=== PATIENT | male | born 1965 | race Two or more races ===

== ENCOUNTER 2025-03-17 22:17 | Emergency (ER) | payer MEDICAID, OTHER ==
[~2025-03-17] VITALS: Ht 165.1 cm; Wt 72.7 kg
[2025-03-17] MEDS: LORazepam 2MG/ML-1ML VIAL IV ONE (23:00)
[2025-03-17 23:03] VITALS: PULSE 88; RESP 20; O2SAT 97
[2025-03-17] MEDS: SODIUM CHLORIDE 0.9% 1,000 ML IV ONE (23:06)
--- NOTE | 2025-03-17 23:11 | ED.PDOC ---
Ankit. trauma (HPI) HPI Comments 59-year-old male who is brought in by ambulance for evaluation status post fall. Per EMS personnel report, patient fell from the back of a truck after getting intoxicated with alcohol at a [place], earlier, this evening. Fall was witnessed. Patient hit the right side of his head and lost consciousness for 2 minutes. Initial onset blood glucose of 416. Patient was combative EN route and had to be placed in four point restraints. mihaela garza: fall, etoh head injury, intox. hyperglycemia HPI: Poor Historian. 59-year-old male brought in by ambulance for evaluation of a fall from the back of a truck. Patient was in a [employer] and is intoxicated. Patient fell and bumped the right side of his head with a right scalp hematoma and episode of positive loss of consciousness lasting no more than 2 minutes. Patient has been combative in the field and they had to put him on four point restraint. Patient initially refused C-collar to be placed. The appears to be some urine incontinence as well however no history of seizures. Blood sugars elevated on arrival. Vital signs are otherwise unremarkable. When patient is asked he denies any pain anywhere in his body. Initial Vitals BP: 153/100 HR: 76 RR: 18 O2: 96% on room air Blood glucose of 416 Past Medical History: Unknown Past Surgical History: Unknown Social history: Alcohol REVIEW OF SYSTEMS: CONSTITUTIONAL: Denies acute: fever, diaphoresis, chills, HEAD: Denies acute: headache, photophobia Eyes: Denies acute: Double vision, vision loss, eye pain, eye discharge. EARS: Denies acute: tinnitus, hearing loss, ear discharge, ear pain, THROAT: Denies acute: sore throat, swelling, difficulty swallowing , pain with swallowing, change in voice. NECK: Denies acute: neck pain, neck swelling, stiff neck. HEART: Denies acute : chest pain, palpitations, LUNGS: Denies acute: SOB, wheezing, cough, hemoptysis ABDOMEN: Denies acute: abdominal pain, Nausea, Vomiting, diarrhea, melena , hematemesis, hematochezia SKIN: Denies acute: rash, redness, lesions, itchiness. EXTREMITIES: Denies acute: calf pain, numbness, tingling, weakness, denies pain in extremity. Denies acute: Low back pain. Neuro: Denies acute: focal neurological deficit, motor or sensory focal neurological deficit, tremors, seizure like activity, confusion, dizziness, change in mental status, loss of bowel or bladder function, cauda equina like symptoms. : Denies acute: dysuria, hematuria, flank pain, increase in urinary frequency. PSYCH: Denies acute: hallucination, suicidal ideation, homicidal ideation. PHYSICAL EXAM: General: ---mild-----acute distress, awake and alert. Head: normocephalic, noted dried scalp hematoma. No bleeding. No raccoon's eyes, no howell sign. Neck: supple, trachea is midline, no swelling. Cervical spine: Palpation of the posterior midline of the cervical spine reveals no focal swelling, erythema, focal tenderness to palpation. Patient has normal range of motion. Throat: Normal phonation. No erythema, no oral trauma, no exudates, no obstruction Eyes:, no erythema, no purulent discharge, no proptosis, no icterus. Heart: regular rate, regular rhythm, no significant murmur appreciated. Lungs: no apparent respiratory distress, Able to speak in full sentences. No wheezing, no rhonchi, no crackles. No stridors Clear to auscultation bilaterally. Abdomen: non tender to palpation, non distended, soft, no guarding, no rebound, + bowel sounds. Neuro: Awake, Alert, oriented to name, self, , follows commands. Appears intoxicated. Skin: no petechia, no purpura, no cyanosis, non-pale, not jaundice. Lower extremities: --no - Pitting edema no deformity, no focal swelling, no calf TTP. Makes eye contact. moves all four extremities. Face: no apparent facial droop. Ambulating in the ED independently. Ears: Normal appearing TM b/l, Stroke: finger to nose cerebellar testing is intact. No pronator drift. 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 ED COURSE: DISCLAIMER: This medical document was created using an electronic medical record system with voice recognition software and computerized dictation system. Although this document has been carefully reviewed, there might still be some phonetic and typographical errors. Occasional wrong-word or "sound-alike" substitutions may have occurred due to the inherent limitations of voice recognition software. These areas are purely typographical due to imperfections of the software programs and do not reflect any compromise in the patient's medical care. Please read the chart carefully and recognize, using context, where these substitutions have occurred. Chief Complaint: Head Injury Time Seen by MD: 22:45 Reviewed notes: Nurses Notes, Allergies Allergies: Coded Allergies: NO KNOWN ALLERGIES (Unverified , 03/17/25) Information Source: Patient, Emergency Med Personnel Mode of Arrival: Ambulatory Was a procedure done? Was a procedure done?: No Differential Diagnosis Multiple Trauma: Closed Head Injury, Cardiac Injury, Fractures, Intraabdominal Injury, Pneumothorax, Cerebral Contusion, Pulmonary Contusion, Spine Injury, Tracheal Injury, Urological Injury, Vascular Injury, Abrasions, Contusion, Foreign Body, Hematoma, Laceration, Encephalopathy Neck Injury: Cervical Muscle Spasm, Cervical Sprain, Cervical Strain, Cervical Fracture, Spinal Cord Injury X-Ray, Labs, Meds, VS Vital Signs Date Time Temp Pulse Resp B/P (MAP) Pulse Ox O2 Delivery O2 Flow Rate FiO2 03/18/25 02:10 98.1 80 18 108/68 (81) 97 98.1 03/17/25 23:26 60 03/17/25 23:03 98.1 88 20 121/78 (92) 97 98.1 03/17/25 23:03 88 20 97 Room Air* 0 21 03/17/25 22:26 97.6 66 18 126/74 99 97.6 Lab Test 03/18/25 05:33 03/18/25 02:53 03/18/25 02:16 03/18/25 01:35 Range/Units Plasma/Serum Blood Alcohol 140.7 H 203.8 H <10 mg/dL Urine Color Yellow Yellow Urine Clarity Clear Clear Urine pH 6.0 5.0-9.0 Urine Specific [place] 1.022 1.001-1.035 Urine Protein Negative Negative Urine Ketones 1+ H Negative Urine Blood Negative Negative /uL Urine Nitrite Negative Negative Urine Bilirubin Negative Negative Urine Urobilinogen Normal Negative mg/dL Urine Leukocyte Esterase Negative Negative /uL Urine RBC None seen 0 - 3 /hpf Urine Microscopic WBC < 1 0-3 /HPF Urine Squamous Epithelial Cells None seen <5 /hpf Urine Bacteria Few H None Seen /hpf Urine Glucose 4+ H Normal mg/dL Urine Opiates Screen Neg NEGATIVE Urine Fentanyl Screen Neg NEGATIVE Urine Barbiturates Screen Neg NEGATIVE Urine Phencyclidine Screen Neg NEGATIVE Urine Amphetamines Screen Neg NEGATIVE Urine Benzodiazepines Screen Neg NEGATIVE Urine Cocaine Screen Neg NEGATIVE Urine Cannabinoids Screen Neg NEGATIVE POC Glucose 333 H 70-106 mg/dl Test 03/18/25 00:29 Range/Units White Blood Count 9.5 4.4-10.8 10^3/uL Red Blood Count 4.52 4.5-5.90 10^6/uL Hemoglobin 14.6 13.5-17.5 g/dL Hematocrit 42.7 41.0-53.0 % Mean Corpuscular Volume 94.4 80.0-100.0 fL Mean Corpuscular Hemoglobin 32.4 H 28.0-32.0 pg Mean Corpuscular Hemoglobin Concent 34.3 32.0-36.0 g/dL Red Cell Distribution Width 12.4 11.8-14.3 % Platelet Count 182 140-450 10^3/uL Mean Platelet Volume 9.2 6.9-10.8 fL Neutrophils (%) (Auto) 75.2 37.0-80.0 % Lymphocytes (%) (Auto) 18.8 10.0-50.0 % Monocytes (%) (Auto) 5.3 0.0-12.0 % Eosinophils (%) (Auto) 0.6 0.0-7.0 % Basophils (%) (Auto) 0.1 0.0-2.0 % Neutrophils # (Auto) 7.2 1.6-8.6 10 ^3/uL Lymphocytes # (Auto) 1.8 0.4-5.4 10 ^3/uL Monocytes # (Auto) 0.5 0-1.3 10 ^3/uL Eosinophils # (Auto) 0.1 0-0.8 10 ^3/uL Basophils # (Auto) 0 0-0.2 10 ^3/uL Nucleated Red Blood Cells 0.1 % Sodium Level 141 136-145 mmol/L Potassium Level 4.0 3.5-5.1 mmol/L Chloride Level 103 98-107 mmol/L Carbon Dioxide Level 24 20-31 mmol/L Anion Gap 14 5-15 Blood Urea Nitrogen 7 L 9-23 mg/dL Creatinine 0.81 0.700-1.30 mg/dL Glomerular Filtration Rate Calc 101 >90 mL/min BUN/Creatinine Ratio 8.6 L 10.0-20.0 Serum Glucose 348 H 74-106 mg/dL Calcium Level 8.7 8.7-10.4 mg/dL Magnesium Level 2.2 1.6-2.6 mg/dL Total Bilirubin 0.5 0.2-1.0 mg/dL Aspartate Amino Transferase (AST) 25 13-40 U/L Alanine Aminotransferase (ALT) 33 7-40 U/L Alkaline Phosphatase 107 46-116 U/L Troponin I High Sensitivity < 3 L </=54 ng/L Total Protein 7.3 5.7-8.2 g/dL Albumin 4.4 3.2-4.8 g/dL Plasma/Serum Blood Alcohol 258.5 H <10 mg/dL Current Medications Medications (Trade) Dose Ordered Sig/Clarence Route Start Time Stop Time Status Last Admin Lorazepam (Ativan Inj) 1 mg ONCE ONCE IV 03/17/25 22:45 03/17/25 22:46 DC 03/17/25 23:00 Sodium Chloride 1,000 ml @ 1,000 mls/hr Q1H ONCE IV 03/17/25 23:00 03/17/25 23:59 DC 03/17/25 23:06 Sodium Chloride 1,000 ml @ 1,000 mls/hr Q1H ONCE IV 03/18/25 01:45 03/18/25 02:44 DC 03/18/25 02:09 [place] [address] Ph: [phone] DIAGNOSTIC IMAGING Diagnostic Imaging Report : [id number] Signed PATIENT: MIHAELA LATHAM ACCT: [id number] UNIT: [id number] : 1965 LOC: ER ROOM / BED: / AGE / SEX: 59 / M ADM STATUS: REG ER SERVICE 33 ORDERING PHYSICIAN: HIRAM STANTON DO PROCEDURE(s): HWOCT - HEAD WITHOUT CONTRAST REASON: HEAD INJURY ORDER NUMBER(s): [id number], ACCESSION NUMBER(s): [id number] CT HEAD WITHOUT CONTRAST INDICATION: HEAD INJURY EXAM DATE: 03/18/2025 12:01 AM COMPARISON: None RADIATION DOSE: CTDIvol: 60.74 mGy, DLP: 1196.81 mGy*cm PROCEDURE: CT scans of the head were obtained from the vertex to the skull base. Sagittal and coronal reconstructions were provided. All CT scans at this medical facility are performed using dose modulation techniques as appropriate to a performed exam including the following: Automated exposure control was utilized; adjustment of the MA and/or KV according to patient size; and use of iterative reconstruction technique. FINDINGS: No acute territorial infarct, intracranial hemorrhage, or mass effect. There are global involutional changes with compensatory prominence of the ventricles and sulci. Patchy periventricular and subcortical white matter hypoattenuation is nonspecific but may be related to small vessel ischemic disease. The orbits are normal. The paranasal sinuses and mastoid air cells are clear. Mild right parietal scalp hematoma without underlying fracture. Chronic deformity of the right medial orbital wall. IMPRESSION: 1. No acute territorial infarct, intracranial hemorrhage, or mass effect. 2. Age-related involutional changes. Chronic microvascular changes. 3. Small right parietal scalp hematoma without underlying fracture. ATED BY: JUAN LUIS BELL MD DICTATED DATE/TIME: 03/18/2532 SIGNED BY: JUAN LUIS BELL MD SIGNED DATE/TIME: 03/18/2532 CC: [place] [address] Ph: [phone] DIAGNOSTIC IMAGING Diagnostic Imaging Report : [id number] Signed PATIENT: MIHAELA LATHAM ACCT: [id number] UNIT: [id number] : 1965 LOC: ER ROOM / BED: / AGE / SEX: 59 / M ADM STATUS: REG ER SERVICE 33 ORDERING PHYSICIAN: HIRAM STANTON DO PROCEDURE(s): CS2 - CERVICAL WITHOUT CONTRAST REASON: HEAD INJURY ORDER NUMBER(s): [id number], ACCESSION NUMBER(s): [id number] EXAM: CT CERVICAL WITHOUT CONTRAST HISTORY: HEAD INJURY COMPARISON: None CTDIvol 24 mGy, DLP 576 mGy*cm. TECHNIQUE: Multiple axial CT images of the spine were obtained using bone algorithm. Axial and coronal reformatting was done. Bone and soft tissue windows were reviewed. FINDINGS: No evidence of vertebral fracture or compresison deformity. Straightening of normal lordotic curvature without listhesis. Degenerative change of the craniocervical junction with normal alignment. Mild multilevel spondylosis. No acute abnormality of the imaged intracranial contents, neck soft tissues, or upper chest. IMPRESSION: 1. No acute finding of the cervical spine. ATED BY: JUS WHARTON MD DICTATED DATE/TIME: 03/18/2525 SIGNED BY: JUS WHARTON MD SIGNED DATE/TIME: 03/18/2525 CC: Time of 1ST Reevaluation: 22:45 Reevaluation 1ST: Unchanged Time of 2ND Reevaluation: 06:46 Reevaluation 2ND: Improved Patient Education/Counseling: Other Family Education/Counseling: No Family Present Assigned to Dr. dr. mauricio Comments MDM: patient presented with the above HPI.--intoxication/head injury----workup was initiated. patient was found with the above mentioned diagnosis. the following medications were ordered: please refer to order lists of meds and tests obtained by myself Dr. Stanton. Patient ED course and VS have been stabilized. Patient has been reassessed in the ED and remained in a stable condition. Patient has been observed in the ED adequate length of time to insure improvement/stability. Escalation of care considered: Consideration of escalation to observation or admission C-collar was applied. Patient later removed it. Patient has been agitated and required some Ativan. Patient ambulating in the ED and still altered and intoxicated. Patient was placed on some restraints to protect him. Patient was given fluid hydration. Alcohol levels were monitored. Patient continues to be in ED observation awaiting reassessment after he veronique up and re-evaluation of his cervical spine again. The care of this patient was transitioned to my colleague Dr. Mauricio All the reports of any imaging studies that were ordered by myself were reviewed by myself. Departure 1 Departure Time of Disposition: 06:43 Impression: Primary Impression: Closed head injury Additional Impressions: Scalp hematoma Alcohol abuse with intoxication Hyperglycemia Disposition: 30 STILL A PATIENT Condition: Guarded Discharged With: Self Critical Care Note Critical Care Time?: No I personally scribed for HIRAM STANTON DO ([email or web address]) on 03/18/25 at 00:27. Electronically submitted by Ernst Meza ([email or web address]). I personally scribed for HIRAM STANTON DO ([email or web address]) on 03/18/25 at 01:37. Electronically submitted by Ernst Meza ([email or web address]). I personally scribed for HIRAM STANTON DO ([email or web address]) on 03/18/25 at 01:38. Electronically submitted by Ernst Meza ([email or web address]). HIRAM STANTON DO Mar 17, 2025 23:11
--- NOTE | 2025-03-18 00:29 | DVH ---
EXAM: CT CERVICAL WITHOUT CONTRAST HISTORY: HEAD INJURY COMPARISON: None CTDIvol 24 mGy, DLP 576 mGy*cm. TECHNIQUE: Multiple axial CT images of the spine were obtained using bone algorithm. Axial and coronal reformatting was done. Bone and soft tissue windows were reviewed. FINDINGS: No evidence of vertebral fracture or compresison deformity. Straightening of normal lordotic curvature without listhesis. Degenerative change of the craniocervical junction with normal alignment. Mild multilevel spondylosis. No acute abnormality of the imaged intracranial contents, neck soft tissues, or upper chest. IMPRESSION: 1. No acute finding of the cervical spine.
--- NOTE | 2025-03-18 00:36 | DVH ---
CT HEAD WITHOUT CONTRAST INDICATION: HEAD INJURY EXAM DATE: 03/18/2025 12:01 AM COMPARISON: None RADIATION DOSE: CTDIvol: 60.74 mGy, DLP: 1196.81 mGy*cm PROCEDURE: CT scans of the head were obtained from the vertex to the skull base. Sagittal and coronal reconstructions were provided. All CT scans at this medical facility are performed using dose modulation techniques as appropriate to a performed exam including the following: Automated exposure control was utilized; adjustment of the MA and/or KV according to patient size; and use of iterative reconstruction technique. FINDINGS: No acute territorial infarct, intracranial hemorrhage, or mass effect. There are global involutional changes with compensatory prominence of the ventricles and sulci. Patchy periventricular and subcortical white matter hypoattenuation is nonspecific but may be related to small vessel ischemic disease. The orbits are normal. The paranasal sinuses and mastoid air cells are clear. Mild right parietal scalp hematoma without underlying fracture. Chronic deformity of the right medial orbital wall. IMPRESSION: 1. No acute territorial infarct, intracranial hemorrhage, or mass effect. 2. Age-related involutional changes. Chronic microvascular changes. 3. Small right parietal scalp hematoma without underlying fracture.
[2025-03-18 00:44] LABS: Hematocrit 42.7 % (41.0-53.0); Hemoglobin 14.6 g/dL (13.5-17.5); Mean Corpuscular Hemoglobin 32.4 pg (28.0-32.0); Mean Corpuscular Volume 94.4 fL (80.0-100.0); Nucleated Red Blood Cells % 0.1 %
[2025-03-18 01:18] LABS: Alanine Aminotransferase 33 U/L (7-40); Albumin 4.4 g/dL (3.2-4.8); Alkaline Phosphatase 107 U/L (46-116); Anion Gap 14 (5-15); BUN/Creatinine Ratio 8.6 (10.0-20.0); Calcium 8.7 mg/dL (8.7-10.4); Carbon Dioxide 24 mmol/L (20-31); Chloride 103 mmol/L (98-107); Magnesium 2.2 mg/dL (1.6-2.6); Potassium 4.0 mmol/L (3.5-5.1); Sodium 141 mmol/L (136-145); Total Protein 7.3 g/dL (5.7-8.2)
[2025-03-18 01:19] LABS: Bilirubin, Total 0.5 mg/dL (0.2-1.0)
[2025-03-18 01:33] LABS: Blood Urea Nitrogen 7 mg/dL (9-23); Glucose 348 mg/dL (74-106)
[2025-03-18] MEDS: SODIUM CHLORIDE 0.9% 1,000 ML IV ONE (02:09)
[2025-03-18 02:41] LABS: Urine Protein, UAD Negative (Negative)
[2025-03-18 02:58] LABS: Amphetamine Screen, Urine Neg (NEGATIVE); Barbiturate Scree,Urine Neg (NEGATIVE); Benzodiazephine Screen, Urine Neg (NEGATIVE); Cannabinoid Screen, Urine Neg (NEGATIVE); Cocaine Screen, Urine Neg (NEGATIVE); Opiate Scree,Urine Neg (NEGATIVE); Phencyclidine Screen, Urine Neg (NEGATIVE)
[2025-03-18 07:30] VITALS: PULSE 82; RESP 18; O2SAT 99
[2025-03-18 11:59] VITALS: BP 130/76; PULSE 93; RESP 16; TEMP 98.3; O2SAT 98
--- NOTE | 2025-03-18 13:52 | ED.PDOC ---
Departure 1 Departure Time of Disposition: 13:51 (Patient is now clinically sober. We will discharge patient home) Impression: Primary Impression: Closed head injury Additional Impressions: Alcohol abuse with intoxication Hyperglycemia Scalp hematoma Disposition: HOME / SELF CARE / HOMELESS Condition: Stable Additional Instructions: You were intoxicated. It is important to only drink in moderation. If you need help quitting you can call (HELP). If your symptoms worsen or you have any other concerns then please return to the ER. Discharged With: Self VENICE PADRON MD Mar 18, 2025 13:52
--- NOTE | 2025-03-19 09:02 | ECG ---
[facility] Test Date: 2025-03-17 Test Time: 23:26:28 Pat Name: MIHAELA ECKERTDepartment: ED Room: Gender: Antichecking Iron Worker: : 1965 Requested By: HIRAM STANTON Order Number: [id number] Reading MD: Suraj Beltran Measurements Intervals [place] Rate: 60 P: 25 [place]: 157 QRS: 13 QRSD: 107 T: 85 QT: 447 QTc: 447 Interpretive Statements Sinus rhythm Abnormal T, consider ischemia, lateral leads Baseline wander in lead(s) V5 Electronically Signed On 03-20-2025 17:54:36 PST by Suraj Beltran Please click the below link to view image of tracing.
== END 2025-03-18 14:16 | disposition home or self-care (01) ==
LOC: EDBD 22:17 → ER 22:17
DX: S00.03XA Contusion of scalp, initial encounter (principal); S06.891A Other specified intracranial injury with loss of consciousness of 30 minutes or less, initial encounter; F10.129 Alcohol abuse with intoxication, unspecified; R73.9 Hyperglycemia, unspecified; W17.89XA Other fall from one level to another, initial encounter; Y93.89 Activity, other specified; Y92.89 Other specified places as the place of occurrence of the external cause; Y99.8 Other external cause status; Y90.8 Blood alcohol level of 240 mg/100 ml or more
CPT/HCPCS: 36415; 70450; 72125; 80053; 80307; 80320; 81001; 82947; 83735; 84484; 85025; 93005; 96361; 96374; 99285; J2060; J7030; 82962